=== PATIENT | female | born 1970 | race Caucasian/White ===

== ENCOUNTER 2018-08-10 11:51 | Emergency (ER) | payer BC ==
[2018-08-10] MEDS ORDERED: LET GEL TOPICAL 1 EA SYR TP ONE (12:06)
[2018-08-10] MEDS ORDERED: TDAP ADULT 0.5 ML INJ (BOOSTRIX) IM ONE (13:10)
--- NOTE | 2018-08-10 13:10 | EDPHY ---
H & P Time Seen by Provider: 08/10/18 12:01 HPI/ROS: This patient sustained a laceration to her right thumb when the glass bottle that she was cleaning broke and the sharp edge of a glass caused a laceration to her right thumb. She reports moderate pain and mild bleeding that slowed with direct pressure prior to arrival. She is accompanied by her daughter who drove her here by private vehicle for evaluation. She denies any other injuries or other complaints. ROS: Neuro: No numbness or tingling the affected thumb Musculoskeletal: No difficulty moving the affected thumb Integumentary: No feeling of foreign body 5 point review of symptoms is performed and otherwise negative with exception of pertinent positives and negatives listed in HPI and ROS Smoking Status: Former smoker Physical Exam: Physical Exam Vital signs are normal. General: No acute distress Lungs: No respiratory distress. Cardiac: Brisk capillary refill is intact throughout. Skin: No rash or pallor. Patient has a 2 cm full-thickness laceration to the right thumb palmar aspect with subcutaneous tissue evident but no deeper structures injured. No foreign bodies are present. Neuro: Alert and oriented x3 with no sensorimotor deficits to the affected extremity. Constitutional: Initial Vital Signs Temperature (C) 37.2 C 08/10/18 12:01 Heart Rate 92 08/10/18 12:01 Respiratory Rate 16 08/10/18 12:01 Blood Pressure 119/83 H 08/10/18 12:01 O2 Sat (%) 93 08/10/18 12:01 O2 Delivery Mode Room Air Allergies/Adverse Reactions: No Known Allergies Allergy (Unverified 08/10/18 12:01) Home Medications: Medication Instructions Recorded Sertraline HCl 08/10/18 MDM/Departure - MDM Procedures: The wound is 2 cm, full-thickness described physical exam. The wound was copiously irrigated with saline. The wound was explored for foreign bodies and none were found. The wound was prepped and draped in the normal sterile fashion. The wound was anesthetized using let solution initially followed by a 50 50 mix of 0.5% Marcaine and 1% plain lidocaine, 27 gauge needle, 2 mL with good effect The edges were reapproximated using 4 0 Prolene on a P3 needle-6 running sutures with good hemostasis and cosmesis. The patient tolerated the procedure well. There were no complications. Medications Given: Discontinued Medications Diphtheria/Tetanus/Acell Pertussis (Boostrix) 0.5 ml IM .ONCE ONE Stop: 08/10/18 13:11 Last Admin: 08/10/18 13:37 Dose: 0.5 ml Tetracaine/Epinephrine/Lidocaine (Let Gel Topical) 1 ea TP EDNOW ONE Stop: 08/10/18 12:07 Last Admin: 08/10/18 12:11 Dose: 1 ea ED Course/Re-evaluation: Discussion: Simple thumb laceration without evidence of neurovascular compromise. We counseled patient regarding wound care prior to discharge home. She is placed in a dressing by our tech. We answered all her questions prior to discharge - Depart Disposition: Home, Routine, Self-Care Clinical Impression: Thumb laceration Qualifiers: Encounter type: initial encounter Damage to nail status: without damage Foreign body presence: without foreign body Laterality: right Qualified Code(s) : S61.011A - Laceration without foreign body of right thumb without damage to nail, initial encounter Condition: Good Instructions: Finger Laceration (ED) Additional Instructions: Diagnosis: Thumb laceration Plan: Keep the wound clean and dry for the next 2 days. Then clean daily with warm soapy water Return for suture removal in 10-12 days Ibuprofen and Tylenol for pain as needed. Return sooner if he develops redness, discharge or other concerns for infection. Referrals: NONE *PRIMARY CARE P,. [Primary Care Provider] - As per Instructions Alirio Ruby MD [Medical Doctor] - As per Instructions
[2018-08-10 13:43] VITALS: BP 120/85
== END 2018-08-10 13:34 | disposition home or self-care (01) ==
LOC: CED 11:51
PROC: 0HQFXZZ Repair Right Hand Skin, External Approach (ICD-10-PCS; principal; 2018-08-10)
DX: S61.011A Laceration without foreign body of right thumb without damage to nail, initial encounter (principal); W25.XXXA Contact with sharp glass, initial encounter; Y93.G1 Activity, food preparation and clean up; Y92.000 Kitchen of unspecified non-institutional (private) residence as the place of occurrence of the external cause; Z23 Encounter for immunization
CPT/HCPCS: 90471-ER; 99283-ER